=== PATIENT | female | born 1985 | race Caucasian/White ===

== ENCOUNTER 2020-08-03 23:23 | Emergency (ER) | payer SELFPAY ==
[~2020-08-03] VITALS: Ht 149.9 cm; Wt 57.8 kg
[2020-08-03 23:41] VITALS: BP 118/85
[2020-08-04] MEDS ORDERED: ACETAMINOPHEN 325MG TABLET PO STA (00:12)
[2020-08-04] MEDS ORDERED: ONDANSETRON 4MG ODT PO STA (00:12)
== END 2020-08-04 01:46 | disposition home or self-care (01) ==
LOC: ER 23:23
DX: S20.219A Contusion of unspecified front wall of thorax, initial encounter (principal); M60.9 Myositis, unspecified; Y08.89XA Assault by other specified means, initial encounter; Y93.89 Activity, other specified; Y92.89 Other specified places as the place of occurrence of the external cause; Z88.0 Allergy status to penicillin
CPT/HCPCS: 71045; 81025; 99283; Q0162